=== PATIENT | female | born 1990 | race Caucasian/White ===

== ENCOUNTER 2019-03-13 02:05 | Inpatient (IN) | payer OTHER ==
[~2019-03-13] VITALS: Ht 165.1 cm; Wt 80.7 kg
[2019-03-13 02:25] VITALS: BP 109/69
[2019-03-13] MEDS ORDERED: IV NS 0.9% 1,000 ML IV PRN (05:03)
[2019-03-13] MEDS ORDERED: ONDANSETRON HCL/PF 4 MG/2 ML VIAL IVP PRN (05:30)
[2019-03-13 06:18] LABS: BASOPHILS % (AUTO) 0.6 % (0.0-2.0); EOSINOPHILS % (AUTO) 2.7 % (0.0-6.0); HEMATOCRIT 41 % (33-45); HEMOGLOBIN 14.3 g/dL (11.5-14.8); LYMPHOCYTES # (AUTO) 1.4 /CMM (0.8-4.8); LYMPHOCYTES % (AUTO) 22.2 % (20.0-44.0); MEAN CORPUSCULAR HGB CONC 35 g/dl (31.0-36.0); MEAN CORPUSCULAR VOLUME 98 fL (82-100); MONOCYTES # (AUTO) 0.7 /CMM (0.1-1.30); MONOCYTES % (AUTO) 10.7 % (2.0-12.0); NEUTROPHILS % (AUTO) 63.8 % (43.0-81.0); PLATELET COUNT (AUTO) 317 /CMM (150-450); RED BLOOD CELL COUNT(AUTO) 4.21 MIL/uL (4.0-5.2); WHITE BLOOD COUNT (AUTO) 6.3 K/uL (4.3-11.0)
[2019-03-13 06:24] LABS: CALCIUM, SERUM 8.4 mg/dL (8.5-10.1); CARBON DIOXIDE 32 mmol/L (21-32); CHLORIDE 104 mmol/L (98-107); CREATININE 0.6 mg/dL (0.6-1.3); GLUCOSE 96 mg/dL (74-106); POTASSIUM 3.6 mmol/L (3.5-5.1); SODIUM SERUM 140 mmol/L (136-145); UREA NITROGEN, BLOOD 9 mg/dL (7-18)
[2019-03-13 06:28] LABS: MAGNESIUM 1.9 mg/dL (1.8-2.4)
[2019-03-13 06:39] LABS: CHOLESTEROL 131 mg/dL (<200); HDL CHOLESTEROL 54 mg/dL (40-60); LDL 69 mg/dL (0-99); THYROID STIMULATING HORMONE 1.572 uIU/mL (0.358-3.74); TRIGLYCERIDES 72 mg/dL (30-150)
[2019-03-13] MEDS: MORPHINE SULFATE INJ 2 MG/ML DISP.SYRIN IV PRN ×4 (06:41→23:17)
--- NOTE | 2019-03-13 06:45 | NUR ---
MS RN NOTES AWAKE & RESPONSIVE. NOT IN ANY DISTRESS. NO SOB NOTED. DENIES ANY PAIN OR DISCOMFORT AT THIS TIME. WITH IVF INFUSING WELL. MONITORED ACCORDINGLY. CALL LIGHT WITHIN REACH. BED IN LOWEST POSITION. SR UP X 3 WITH BED ALARM ON FOR SAFETY. WILL ENDORSE TO NEXT SHIFT.
--- NOTE | 2019-03-13 07:30 | NUR ---
M/S RN NOTES PATIENT RESTING IN BED, ALERT AND ORIENTED X 4, NO RESPIRATORY DISTRESS NOTED, DENIES ANY PAIN AT THIS TIME. SKIN WARM TO TOUCH, IVF OF NS INFUSING AT 75ML/HR ON THE RFA #22G, INTACT, NO REDNESS, NO INFILTRATION NOTED. BED ON LOWEST LOCKED POSITION, CALL LIGHT WITHIN REACH. WILL CONTINUE TO MONITOR.
[2019-03-13 08:00] VITALS: BP 103/63
[2019-03-13] MEDS: FAMOTIDINE/PF INJ 20 MG/2 ML VIAL IV SCH ×3 (08:30→20:10)
[2019-03-13] MEDS ORDERED: PANTOPRAZOLE 40 MG VIAL IV SCH (09:00)
[2019-03-13 16:00] VITALS: BP 104/63
[2019-03-13 17:11] LABS: APPEARANCE,URINE SL CLOUDY (CLEAR); BILIRUBIN,URINE NEGATIVE (NEGATIVE); BLOOD, URINE NEGATIVE Ery/uL (NEGATIVE); COLOR,URINE YELLOW (YELLOW); KETONES,URINE NEGATIVE (NEGATIVE); LEUKOCYTE ESTERASE ,URINE TRACE (NEGATIVE); NITRITE, URINE NEGATIVE (NEGATIVE); PH,URINE 6.5 (5.0-8.0); PROTEIN,URINE NEGATIVE (NEGATIVE); UGLUCOSE NEGATIVE (NEGATIVE)
[2019-03-13 17:30] LABS: BACTERIA,URINE 3+ /HPF (None Seen); RBC,URINE 0-2 /HPF (0-2)
--- NOTE | 2019-03-13 18:00 | NUR ---
M/S RN NOTES PATIENT RESTING IN BED, NO RESPIRATORY DISTRESS NOTED, PAIN TOLERABLE WITH MEDICATION ORDERED. SKIN WARM TO TOUCH. RT KNEE IMMOBILIZER AND LLE SPLINT IN PLACE. IVF OF NS INFUSING AT 75ML/HR ON THE RFA #22G, NO REDNESS, NO INFILTRATION. PATIENT'S NEEDS ATTENDED. BED ON LOWEST LOCKED POSITION, CALL LIGHT WITHIN REACH. WILL ENDORSE TO ONCOMING NURSE.
--- NOTE | 2019-03-13 19:48 | NUR ---
MS RN NOTES RECEIVED PATIENT AWAKE IN BED WITH NO DISTRESS NOTED. CALL LIGHT WITHIN REACH. MOTHER AT BEDSIDE. NO C/O PAIN OR DISCOMFORT. PERIPHERAL LINE INTACT AND PATENT. RIGHT LEG IMMOBILIZER IN PLACE. DRESSING ON LEFT LEG INTACT AND DRY. ENCOURAGED USE OF CALL LIGHT FOR ASSISTANCE AND VERBALIZED GOOD UNDERSTANDING. BED IN LOW LOCK SETTING. ROOM FREE OF CLUTTER AND BELONGINGS KEPT NEAR BEDSIDE. WILL CONTINUE TO MONITOR.
[2019-03-13 19:56] VITALS: BP 105/63
[2019-03-14] MEDS: MORPHINE SULFATE INJ 2 MG/ML DISP.SYRIN IV PRN ×3 (03:59→16:20)
--- NOTE | 2019-03-14 06:29 | NUR ---
MS RN NOTES PATIENT ASLEEP IN BED WITH NO DISTRESS NOTED. CALL LIGHT WITHIN REACH. ALL DUE MEDS GIVEN ORDERED WITH NO ASE NOTED. NO FURTHER C/O PAIN OR DISCOMFORT. PERIPHERAL LINE INTACT AND PATENT. RIGHT LEG IMMOBILIZER AND LEFT LEG SPLINT IN PLACE. BED IN LOW LOCK SETTING. ALL BELONGINGS KEPT NEAR BEDSIDE. WILL ENDORSE TO ONCOMING SHIFT.
[2019-03-14 06:34] LABS: BASOPHILS % (AUTO) 0.5 % (0.0-2.0); EOSINOPHILS % (AUTO) 2.7 % (0.0-6.0); HEMATOCRIT 36 % (33-45); HEMOGLOBIN 12.7 g/dL (11.5-14.8); LYMPHOCYTES # (AUTO) 1.6 /CMM (0.8-4.8); LYMPHOCYTES % (AUTO) 26.9 % (20.0-44.0); MEAN CORPUSCULAR HGB CONC 35 g/dl (31.0-36.0); MEAN CORPUSCULAR VOLUME 98 fL (82-100); MONOCYTES # (AUTO) 0.6 /CMM (0.1-1.30); MONOCYTES % (AUTO) 10.4 % (2.0-12.0); NEUTROPHILS # (AUTO) 3.6 /CMM (1.8-8.9); NEUTROPHILS % (AUTO) 59.5 % (43.0-81.0); PLATELET COUNT (AUTO) 303 /CMM (150-450); RED BLOOD CELL COUNT(AUTO) 3.67 MIL/uL (4.0-5.2)
[2019-03-14 07:01] LABS: CALCIUM, SERUM 7.7 mg/dL (8.5-10.1); CREATININE 0.5 mg/dL (0.6-1.3); MAGNESIUM 1.8 mg/dL (1.8-2.4); PHOSPHORUS 3.4 mg/dL (2.5-4.9); POTASSIUM 4.1 mmol/L (3.5-5.1)
--- NOTE | 2019-03-14 07:16 | NUR ---
MS RN OPENING NOTES RECEIVED PATIENT ASLEEP IN BED, EASILY AWAKENS. A/O X4 AND VERBALLY RESPONSIVE. ON ROOM AIR, RESPIRATIONS EVEN AND UNLABORED. IV ACCESS ON RFA INTACT AND PATENT, IVF OF NS @ 75ML/HR INFUSING WELL, NO S/S OF INFILTRATIONS NOTED. RIGHT LEG IMMOBILIZER IN PLACE. DRESSING ON LEFT LEG INTACT AND DRY. SAFETY MEASURES IN PLACE. BED IN LOW LOCKED POSITION WITH SR UP X2. ROOM FREE OF CLUTTERS. CALL LIGHT WITHIN EASY REACH OF PT. WILL CONTINUE TO MONITOR.
[2019-03-14 08:00] VITALS: BP 106/69
[2019-03-14] MEDS: FAMOTIDINE/PF INJ 20 MG/2 ML VIAL IV SCH (09:14)
--- NOTE | 2019-03-14 11:02 | NUR ---
RN NOTES PT COMPLAINTS OF PAIN ON BLE WITH SCALE OF 8/10. PRN MORPHINE 2MG/1ML IVP ADMINISTERED AT 1058. WILL CONTINUE TO MONITOR AND REASSESS PT.
[2019-03-14 16:00] VITALS: BP 106/64
--- NOTE | 2019-03-14 18:09 | NUR ---
BOX MAKER NOTES PATIENT DISCHARGE HOME IN STABLE CONDITION. A/O X4, SAME ABLE TO MAKE NEEDS KNOWN. V/S TAKEN, STABLE AND RECORDED. PT REFUSED SKIN ASSESSMENT. PT NWB ON BLE. RIGHT LEG KNEE IMMOBILIZER AND LLE SPLINT BOTH IN PLACE. BELONGINGS CHECKED, COUNTED AND SIGNED FORM. NAME ARMBAND REMOVED. IV ACCESS ON RFA REMOVED WITH NO BLEEDING NOTED. SMOKING CESSATION EDUCATION AND DISCHARGE INSTRUCTIONS GIVEN TO PT AND VERBALIZED UNDERSTANDING. EXPLAINED TO PT THAT CM ARRANGED FOR PHYSICAL THERAPY FOR HER AT HOME. PT PROVIDED WITH WHEELCHAIR TO GO HOME. PT LEFT UNIT AT 1805 VIA WHEELCHAIR ACCOMPANIED BY SHERYL AND RODRIGO BARKER. AND CHARGE NURSE AWARE OF DISCHARGE.
== END 2019-03-14 18:10 | disposition home or self-care (01) | DRG 342 ==
LOC: MED 02:05
DX: S92.322A Displaced fracture of second metatarsal bone, left foot, initial encounter for closed fracture (principal); F19.90 Other psychoactive substance use, unspecified, uncomplicated; S82.041A Displaced comminuted fracture of right patella, initial encounter for closed fracture; Z82.49 Family history of ischemic heart disease and other diseases of the circulatory system; X58.XXXA Exposure to other specified factors, initial encounter; Y92.89 Other specified places as the place of occurrence of the external cause; Z83.3 Family history of diabetes mellitus; S92.332A Displaced fracture of third metatarsal bone, left foot, initial encounter for closed fracture; W17.89XA Other fall from one level to another, initial encounter; Y93.39 Activity, other involving climbing, rappelling and jumping off; Y92.9 Unspecified place or not applicable; Z72.0 Tobacco use
CPT/HCPCS: 36415; 71045-TC; 73564-TC; 73610-TC; 73630-TC; 80048-TC; 80061-TC; 80305; 81000-TC; 83735-TC; 84100-TC; 84443-TC; 84484-TC; 84703-TC; 85025-TC; 87081-TC; 87086-TC; 97530-TC; G0378; J2270; J3490; J7030